=== PATIENT | female | born 1975 | race Caucasian/White ===

== ENCOUNTER 2025-02-22 00:36 | Emergency (ER) | payer BC ==
[~2025-02-22] VITALS: Ht 170.2 cm; Wt 59.0 kg
[2025-02-22 01:04] LABS: BASOPHILS # (AUTO) 0.1 K/UL (0.0-0.2); BASOPHILS % (AUTO) 0.6 % (0.0-2.0); EOSINOPHILS # (AUTO) 0.3 K/uL (0.0-0.7); EOSINOPHILS % (AUTO) 3.6 % (0.0-7.0); HEMATOCRIT 38.7 % (31.2-41.9); LYMPHOCYTES # (AUTO) 2.2 K/uL (0.8-4.8); LYMPHOCYTES % (AUTO) 25.6 % (20.5-51.5); MEAN CORPUSCULAR HEMOGLOBIN 29.1 uug (24.7-32.8); MEAN CORPUSCULAR HGB CONC 34 g/dL (32.3-35.6); MEAN CORPUSCULAR VOLUME 86.3 fL (75.5-95.3); MONOCYTES # (AUTO) 0.6 K/uL (0.1-1.30); MONOCYTES % (AUTO) 6.6 % (0.0-11.0); NEUTROPHILS # (AUTO) 5.5 K/uL (1.8-8.9); NEUTROPHILS % (AUTO) 63.6 % (38.5-71.5); PLATELET COUNT (AUTO) 234 K/uL (179-408); RED BLOOD CELL COUNT(AUTO) 4.48 MIL/uL (3.63-4.92); RED CELL DISTRIBUTION WIDTH 13.5 % (12.3-17.7); WHITE BLOOD COUNT (AUTO) 8.6 K/uL (3.8-11.8)
[2025-02-22 01:10] LABS: DIFFERENTIAL COMMENT 1
[2025-02-22 01:13] LABS: CALCIUM 9.1 mg/dL (8.5-10.1); CREATININE 0.7 mg/dL (0.6-1.3); POTASSIUM 3.9 mmol/L (3.5-5.1)
[2025-02-22 01:19] LABS: ALBUMIN 3.5 g/dL (3.4-5.0); BILIRUBIN,TOTAL 0.3 mg/dL (0.2-1.0); TOTAL PROTEIN, SERUM 6.6 g/dL (6.4-8.2)
[2025-02-22] MEDS ORDERED: KETOROLAC TROMETHAMINE 30 MG INJ ONE (01:58)
[2025-02-22] MEDS: KETOROLAC TROMETHAMINE 30 MG INJ IM ONE (02:01)
[2025-02-22 02:24] VITALS: BP 115/71; O2SAT 100
[2025-02-22 12:51] LABS: C-REACTIVE PROTEIN 0.09 mg/dL (0.00-0.30)
== END 2025-02-22 02:10 | disposition home or self-care (01) ==
LOC: ER 00:57
DX: M79.672 Pain in left foot (principal); M77.52 Other enthesopathy of left foot and ankle; R55 Syncope and collapse
CPT/HCPCS: 99285; 80053; 85025; 85379; 86140; 84484; 36415; 73630; 93005; 96372; J1885; A4606; A4663